=== PATIENT | male | born 1995 | race Caucasian/White ===

== ENCOUNTER 2017-03-07 09:15 | Inpatient (IN) | payer OTHER, SELFPAY ==
[~2017-03-07] VITALS: Ht 172.7 cm; Wt 61.4 kg
[2017-03-07 10:39] LABS: MEAN CORPUSCULAR HEMOGLOBIN 29.2 pg (27.0-33.0); MEAN CORPUSCULAR VOLUME 88.6 fl (80.0-96.0); RED CELL DISTRIBUTION WIDTH 12.4 % (11.5-14.5); WHITE BLOOD COUNT 10.7 K/mm3 (4.0-10.0)
[2017-03-07 11:14] LABS: ALBUMIN/GLOBULIN RATIO 1.18 (1.00-1.93); ALKALINE PHOSPHATASE 86 U/L (45-117); ALT/SGPT 30 U/L (12-78); ANION GAP 7 MEQ/L (8-16); AST/SGOT 60 U/L (15-37); BILIRUBIN,DIRECT 0.2 MG/DL (0.0-0.2); BILIRUBIN,TOTAL 0.8 MG/DL (0.2-1.0); BLOOD UREA NITROGEN 19 MG/DL (7-18); CALCIUM LEVEL 8.9 MG/DL (8.5-10.1); CARBON DIOXIDE LEVEL 28 MEQ/L (21-32); CHLORIDE LEVEL 106 MEQ/L (98-107); GLOMERULAR FILTRATION RATE > 60.0 (>60); GLUCOSE, FASTING 86 MG/DL (70-105); POTASSIUM SERUM 3.7 MEQ/L (3.5-5.1); SODIUM LEVEL 141 MEQ/L (136-145); TOTAL PROTEIN 7.4 GM/DL (6.4-8.2)
[2017-03-07 12:47] LABS: METHADONE URINE NEGATIVE (NEGATIVE)
[2017-03-07 18:02] VITALS: BP 124/71
[2017-03-07] MEDS ORDERED: MAALOX 30 ML SUSP *UDC PO PRN (19:30)
[2017-03-07] MEDS ORDERED: MOM 30ML SUSPENSION UDC PO PRN (19:30)
[2017-03-07] MEDS ORDERED: LORazepam 1 MG TAB PO PRN (19:30)
[2017-03-07] MEDS ORDERED: traZODone 50 MG TAB PO PRN (19:30)
[2017-03-08 06:35] VITALS: BP 110/52
[2017-03-08] MEDS: SERTRALINE HCL 25 MG TABLET PO SCH (15:58)
[2017-03-08 18:10] VITALS: BP 116/64
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
[2017-03-09 06:26] VITALS: BP 116/59
[2017-03-09 07:47] LABS: ALBUMIN 3.8 GM/DL (3.2-5.2); ALBUMIN/GLOBULIN RATIO 1.12 (1.00-1.93); BILIRUBIN,DIRECT 0.1 MG/DL (0.0-0.2); BILIRUBIN,TOTAL 0.4 MG/DL (0.2-1.0); TOTAL PROTEIN 7.2 GM/DL (6.4-8.2)
[2017-03-09] MEDS: SERTRALINE HCL 25 MG TABLET PO SCH (08:36)
[2017-03-09 18:00] VITALS: BP 113/56
[2017-03-09] MEDS: ACETAMINOPHEN TAB 650MG DOSE (2X325MG) PO PRN (20:33)
[2017-03-10 06:00] VITALS: BP 120/60
--- NOTE | 2017-03-10 06:54 | IPN ---
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 The patient during a reported training exercise had asked his commanding officer to "get it over and drown me." The patient's fiance encouraged him to be forthright with his recent troubles with depression and suicidality. Today the patient was evaluated and he seemed to be less stressed out and he has been compliant with medication. He has attended groups. He reported sleeping well last night, feeling less stressed out, and he feels that his appetite also has improved. He feels hungrier. He reported that he has not been having suicidal thoughts, that his last suicidal ideation was the day that he was admitted. He denies homicidal ideation, denies psychotic thoughts. His thought process is intact, his speech is normal, his memory recent and remote are intact, attention and concentration are good, insight and judgment are improving, his impulse control still needs to improve a little. He has no loosening of associations, his fund of knowledge is adequate. His mood and affect are still a little bit sad and depressed. DIAGNOSES: 1. He has post traumatic stress disorder (PTSD) which is his number one problem. 2. Financial stressors. 3. Unspecified personality disorder. PLAN: The plan is to continue with current medications which include Abilify 5 mg by mouth every evening; Zoloft 25 mg by mouth every week and trazodone 50 mg by mouth every evening taken as needed for insomnia. Will continue to follow him up, monitor closely, encourage him to attend groups and adjust medications accordingly.
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
[2017-03-10] MEDS: SERTRALINE HCL 25 MG TABLET PO SCH (09:20)
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
[2017-03-10 18:00] VITALS: BP 112/60
[2017-03-10] MEDS: ACETAMINOPHEN TAB 650MG DOSE (2X325MG) PO PRN (21:00)
[2017-03-11 06:45] VITALS: BP 135/62
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
[2017-03-11] MEDS: SERTRALINE HCL 25 MG TABLET PO SCH (09:17)
[2017-03-11 18:00] VITALS: BP 121/62
[2017-03-11] MEDS: ACETAMINOPHEN TAB 650MG DOSE (2X325MG) PO PRN (20:14)
[2017-03-12 06:59] VITALS: BP 123/55
[2017-03-12] MEDS: SERTRALINE HCL 25 MG TABLET PO SCH (08:44)
--- NOTE | 2017-03-12 09:22 | MHIPNPDOC ---
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 The patient during a reported training exercise had asked his commanding officer to "get it over and drown me". The patient's fianc encouraged him to be forthright with his recent struggles with depression and suicidality. Patient adds that 2 months ago he attempted to commit suicide by way of cutting neck and also engaged in self-injurious behavior to arm. Patient has reportedly suffered multiple losses and he experiences nightmares and hypervigilance. Patient notes he was reportedly misdiagnosed as bipolar and a younger age, also has a history of being treated for ADHD. [employer] met with patient today to assess treatment progress on inpatient unit. Patient remains on Abilify and Zoloft, also took trazodone for sleep last night noting medication was effective but indicates he will not need sleep aid at discharge, denies challenges with sleep at home. Patient experienced isolated episode of elevated pulse this morning, per nursing note episode was brief and pulse quickly return to normal rate, patient attributes to use of trazodone last night and being in a deep sleep when asked to get up for a.m. vitals. Patient denies history of cardiac challenges, is asymptomatic, and denies symptoms of chest pain, palpitations, dizziness, shortness of breath, or headache. Patient indicates current medication regimen is effective, denies experiencing symptoms of activation, hypomania or moisés and notes, "I feel good ; I feel like my old self again." Patient denies symptoms of anxiety and depression, denies suicidal and homicidal ideation, denies audiovisual hallucinations, denies urge to engage in self-injurious behavior. Patient reports improvement appetite, stable energy level, improvement to concentration and focus. Patient denies symptoms of physical pain and presents with no signs of acute distress at time of interaction. Addendum: Telephone contact made with Anai Hancock, patient's shannan's mother, with whom patient lives, who indicated patient is at baseline, reported " nothing unusual" about patient's presentation, made no indication of patient exhibiting symptoms of hypomania or moisés, and denied having concerns regarding patient's discharge to home. 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 Patient denies history of seizure disorder. Labs on admission indicated elevated WBC, BUN, AST, and low anion gap. AST rechecked on 03/09/17 within normal limits. 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 Denies any auditory or visual hallucinations. Does not appear to be responding to internal stimuli. Does not appear to be endorsing any bizarre or paranoid ideation, denies preoccupation with violence or obsessions Judgment: Fair, has improved during treatment Insight: Fair, has improved during treatment Orientation: alert and oriented times 3 Recent and remote memory: intact Attention span and concentration: intact Fund of knowledge: adequate Mood: "I feel good, normal, "I used to feel like before the depression got me." Patient denies anxiety and depression, mood appears level Affect: Full range, brightens frequently and appropriately, congruent with mood DIAGNOSES: Unspecified mood disorder, rule out PTSD, rule out bipolar disorder, rule out MDD, rule out personality disorder ASSESSMENT: Patient has adjusted to unit, remains visible, engaging selectively with peers, is participating in most unit activities. Patient was started on Zoloft and Abilify by weekend provider, indicates current medication regimen remains effective and denies medication side effects, denies need for dosing adjustment. Patient denies experiencing periods of increased energy, irritability, no grandiosity noted. Patient is talkative but speech does not appear rapid or pressured, no increase in goal-directed behavior, agitation or restlessness noted. Patient does not appear overly energetic, nor does he present with symptoms of hypomania/moisés at time of interaction. Clinical consultation sought regarding medications and isolated episode of elevated pulse , will continue continue medications and will to monitor for medication activation and will discontinue trazodone. Patient denies suicidal and homicidal ideation and verbalizes awareness of how to access supportive services on the unit if needed. Will continue to monitor patient's response to medications and for medication side effects, and will evaluate patient safety, resolution of suicidal ideation, and discharge readiness. Patient is aware that discharge is tentatively scheduled for tomorrow with plan for command to transport to [place] for safety check and then to provide patient with transportation to return to home in [facility]. Patient indicates plan remains to return home with shannan and her family, remains agreeable to participating in outpatient psychotherapy and medication management services. Addendum: Update provided by human resources benefits coordinator later in day indicating [place] now wanting to discharge patient on Friday, not , will transport patient to [facility] for safety check and will then provide patient with safe transportation to home in the [facility]. MANAGEMENT PLAN: Discontinue trazodone. Continue Zoloft 25 mg po q am and Abilify 5 mg po q hs Maintain safety precautions Patient to attend groups and participate in unit programming to develop coping strategies Engage patient in discharge planning process and arrange meeting with command/ support system to ensure safe discharge planning when appropriate Patient to follow up with [place] PCM/local PCM upon discharge TIME SPENT: 35 minutes Vital Signs Vital Signs Date Time Temp Pulse Resp B/P (MAP) Pulse Ox O2 Delivery O2 Flow Rate FiO2 03/12/17 06:59 98.2 82 18 123/55 (77) 03/07/17 18:02 98 Room Air Current Medications Current Medications Acetaminophen (Tylenol Tab) 650 mg Q6HP PRN PO HEADACHE or DISCOMFORT Last administered on 03/11/17 20:14; Start 03/07/17 at 19:30; Stop 04/06/17 at 19:29 Al Hydrox/Mg Hydrox/Simethicone (Mylanta) 30 ml Q4HP PRN PO HEARTBURN/ INDIGESTION; Start 03/07/17 at 19:30; Stop 04/06/17 at 19:29 Aripiprazole (AbiLIFY) 5 mg QHS PO Last administered on 03/11/17 20:13; Start 03/07/17 at 21:00; Stop 04/06/17 at 20:59 Home Med (Med Rec Complete!) ASDIRECTED XX ; Start 03/07/17 at 15:45; Stop at 15:45; Status DC Lorazepam (Ativan) 1 mg Q6HP PRN PO ANXIETY/AGITATION; Start 03/07/17 at 19:30 ; Stop 03/14/17 at 19:29 Magnesium Hydroxide (Milk Of Magnesia) 30 ml DAILYPRN PRN PO CONSTIPATION; Start 03/07/17 at 19:30; Stop 04/06/17 at 19:29 Sertraline HCl (Zoloft) 25 mg DAILY PO Last administered on 03/12/17 08:44; Start 03/08/17 at 09:00; Stop 04/07/17 at 08:59 Trazodone HCl (Desyrel) 50 mg QHSP PRN PO INSOMNIA Last administered on 20:13; Start 03/07/17 at 19:30; Stop 04/06/17 at 19:29 Allergies Coded Allergies: Amphetamine (Unverified Allergy, Severe, "gave me asthma", 03/13/17) Pt not sure if Paxil or Adderall Dextroamphetamine (Unverified Allergy, Severe, "gave me asthma", 03/13/17) Pt not sure if Paxil or Adderall Paroxetine (Unverified Allergy, Severe, "gave me asthma", 03/13/17) Pt not sure if symptoms were caused by Paxil or Adderall Magy Aguiar March 12, 2017 09:22
[2017-03-12 18:00] VITALS: BP 121/82
[2017-03-13 06:32] VITALS: BP 120/67
[2017-03-13] MEDS: SERTRALINE HCL 25 MG TABLET PO SCH (08:37)
--- NOTE | 2017-03-13 12:09 | MHIPNPDOC ---
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 The patient during a reported training exercise had asked his commanding officer to "get it over and drown me". The patient's fianc encouraged him to be forthright with his recent struggles with depression and suicidality. Patient adds that 2 months ago he attempted to commit suicide by way of cutting neck and also engaged in self-injurious behavior to arm. Patient has reportedly suffered multiple losses and he experiences nightmares and hypervigilance. Patient notes he was reportedly misdiagnosed as bipolar and a younger age, also has a history of being treated for ADHD. [employer] met with patient today to assess treatment progress on inpatient unit. Patient remains on Abilify and low-dose Zoloft, notes medications remain effective and denies medication side effects. Patient states he experienced difficulty with sleep last night secondary to "noisy, snoring roommate," was provided with anxiolytic which he notes worked with good effect and he did not experience episode of increased pulse this am. Patient reiterates he will not need sleep aid at time of discharge, denies experiencing sleep challenges at home. Patient indicates current medication regimen remains effective, denies experiencing symptoms of activation, hypomania or moisés. Patient denies symptoms of anxiety and depression, denies suicidal and homicidal ideation, denies audiovisual hallucinations, denies urge to engage in self-injurious behavior. Patient was involved in verbal altercation this morning with another patient who instigated interaction, patient was able to remove himself from the environment, come to staff for assistance, and to request time in room to read, patient was incomplete behavioral control and able to de-escalate self effectively and verbalize needs for support appropriately. Patient reports improvement appetite, stable energy level, improvement to concentration and focus. Patient denies symptoms of physical pain and presents with no signs of acute distress at time of interaction. Addendum: Telephone contact made with Anai Karissa, patient's fijenn's mother, with whom patient lives, who indicated patient is at baseline, reported " nothing unusual" about patient's presentation, made no indication of patient exhibiting symptoms of hypomania or moisés, and denied having concerns regarding patient's discharge to home. 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 Patient denies history of seizure disorder. Labs on admission indicated elevated WBC, BUN, AST, and low anion gap. AST rechecked on 03/09/17 within normal limits. 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 Denies any auditory or visual hallucinations. Does not appear to be responding to internal stimuli. Does not appear to be endorsing any bizarre or paranoid ideation, denies preoccupation with violence or obsessions Judgment: Adequate, has improved during treatment Insight: Fair, has improved during treatment Orientation: alert and oriented times 3 Recent and remote memory: intact Attention span and concentration: intact Fund of knowledge: adequate Mood: "I feel good, normal, "I used to feel like before the depression got me." Patient denies anxiety and depression, mood appears level Affect: Full range, brightens frequently and appropriately, congruent with mood DIAGNOSES: Unspecified mood disorder, rule out PTSD, rule out bipolar disorder, rule out MDD, rule out personality disorder ASSESSMENT: Patient has adjusted well to unit, has been visible, has been engaging appropriately with select peers and staff, and has been participating in unit activities. Patient continues to take Zoloft and Abilify, indicates current medication regimen remains effective and denies medication side effects , denies need for dosing adjustment. Patient denies experiencing periods of increased energy, irritability, no grandiosity noted, speech does not appear rapid or pressured, no increase in goal-directed behavior, agitation or restlessness noted. Patient does not appear overly energetic, nor does he present with symptoms of hypomania/moisés at time of interaction. Patient indicates he struggled with sleep last night due to snoring roommate, we'll make hydroxyzine available to him tonight for sleep if needed, patient denies need for prescription for sleep aid at discharge reiterating he does not experience sleep challenges at home. Patient denies suicidal and homicidal ideation and verbalizes awareness of how to access supportive services on the unit if needed. Will continue to monitor patient's response to medications and for medication side effects, and will evaluate patient safety, resolution of suicidal ideation, and discharge readiness. Patient is aware that discharge is scheduled for tomorrow with plan for command to transport to [place] for safety check and then to provide patient with transportation to return to home in [facility]. Patient indicates plan remains to return home with shannan and her family, remains agreeable to participating in outpatient psychotherapy and medication management services. Addendum: educational resource coordinator indicates family meeting completed via telephone with mother who has indicated patient is at baseline, denied having concerns regarding discharge readiness, is aware patient will require outpatient psychotherapy and medication management, and is making arrangements for follow-up treatment for patient. educational resource coordinator indicates [facility] is requesting that patient be provided with 2 week supplies of medication which can be filled at [facility] prior to patient being transported back to home in [facility]. educational resource coordinator added that patient's medical aid application is underway and [employer] will assist him in completion so that he will have insurance coverage to pay for medications and outpatient services. MANAGEMENT PLAN: Continue Zoloft 25 mg po q am and Abilify 5 mg po q hs. Initiate hydroxyzine 50 mg po hs PRN insomnia Maintain safety precautions Patient to attend groups and participate in unit programming to develop coping strategies Engage patient in discharge planning process and arrange meeting with command/ support system to ensure safe discharge planning when appropriate Patient to follow up with [place] PCM/local PCM upon discharge TIME SPENT: 35 minutes Vital Signs Vital Signs Date Time Temp Pulse Resp B/P (MAP) Pulse Ox O2 Delivery O2 Flow Rate FiO2 03/13/17 06:32 98.2 75 18 120/67 (84) 03/12/17 18:00 Room Air 03/07/17 18:02 98 Current Medications Current Medications Acetaminophen (Tylenol Tab) 650 mg Q6HP PRN PO HEADACHE or DISCOMFORT Last administered on 03/11/17t 20:14; Start 03/07/17 at 19:30; Stop 04/06/17 at 19:29 Al Hydrox/Mg Hydrox/Simethicone (Mylanta) 30 ml Q4HP PRN PO HEARTBURN/ INDIGESTION; Start 03/07/17 at 19:30; Stop 04/06/17 at 19:29 Aripiprazole (AbiLIFY) 5 mg QHS PO Last administered on 03/12/17 20:22; Start 03/07/17 at 21:00; Stop 04/06/17 at 20:59 Home Med (Med Rec Complete!) ASDIRECTED XX ; Start 03/07/17 at 15:45; Stop at 15:45; Status DC Lorazepam (Ativan) 1 mg Q6HP PRN PO ANXIETY/AGITATION Last administered on 03/12 22:26; Start 03/07/17 at 19:30; Stop 03/13/17 at 11:58; Status DC Magnesium Hydroxide (Milk Of Magnesia) 30 ml DAILYPRN PRN PO CONSTIPATION; Start 03/07/17 at 19:30; Stop 04/06/17 at 19:29 Sertraline HCl (Zoloft) 25 mg DAILY PO Last administered on 03/13/17 08:37; Start 03/08/17 at 09:00; Stop 04/07/17 at 08:59 Trazodone HCl (Desyrel) 50 mg QHSP PRN PO INSOMNIA Last administered on 20:13; Start 03/07/17 at 19:30; Stop 03/12/17 at 18:47; Status DC Allergies Coded Allergies: Amphetamine (Unverified Allergy, Severe, "gave me asthma", 03/13/17) Pt not sure if Paxil or Adderall Dextroamphetamine (Unverified Allergy, Severe, "gave me asthma", 03/13/17) Pt not sure if Paxil or Adderall Paroxetine (Unverified Allergy, Severe, "gave me asthma", 03/13/17) Pt not sure if symptoms were caused by Paxil or Adderall Magy Aguiar March 13, 2017 12:08
--- NOTE | 2017-03-13 14:23 | ECGEPIP ---
Stationary ECG Study [facility] Test Date: 2017-03-11 Pat Name: NORBERTO JENKINS Department: Room: [place] [address] Gender: M Director Strategy: DARRION : 1995 Requested By: Magy Aguiar Order Number: [id number] Reading MD: Fede Henry Measurements Intervals [place] Rate: 80 P: 71 IA: 124 QRS: 74 QRSD: 108 T: 46 QT: 348 QTc: 403 Interpretive Statements SINUS RHYTHM ST ELEVATION, PROBABLY EARLY REPOLARIZATION Within normal limits for age Electronically Signed On 03-13-2017 14:22:33 EDT by Fede Henry
[2017-03-13] MEDS ORDERED: ARIP5TA PO (15:54)
[2017-03-13] MEDS ORDERED: SERT25TA PO (15:54)
[2017-03-13 18:00] VITALS: BP 128/69
[2017-03-13] MEDS ORDERED: hydrOXYzine 50 MG TAB PO PRN (21:00)
[2017-03-14 06:46] VITALS: BP 127/81
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
== END 2017-03-14 08:35 | disposition home or self-care (01) | DRG 882 ==
LOC: M ED 10:37 → M ED INP 15:07 → M PSY 17:57
PROVIDERS: ADMIT Psychiatry & Neurology Psychiatry; ATTEND Psychiatry & Neurology Psychiatry
DX: F43.11 Post-traumatic stress disorder, acute (principal); F32.9 Major depressive disorder, single episode, unspecified; Z59.9 Problem related to housing and economic circumstances, unspecified; F60.9 Personality disorder, unspecified; Z62.810 Personal history of physical and sexual abuse in childhood; Z62.811 Personal history of psychological abuse in childhood; Z91.5 Personal history of self-harm; Z88.8 Allergy status to other drugs, medicaments and biological substances; Z87.891 Personal history of nicotine dependence; Z81.8 Family history of other mental and behavioral disorders